=== PATIENT | male | born 1975 | race Asian ===

== ENCOUNTER → 2016-11-07 | Outpatient (CLI) | payer OTHER ==
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
== END ==
LOC: FIMAGING 13:19
PROVIDERS: ATTEND Family Medicine
DX: S52.041A Displaced fracture of coronoid process of right ulna, initial encounter for closed fracture (principal)

== ENCOUNTER 2017-09-14 07:21 | Emergency (ER) | payer OTHER ==
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
[2017-09-14] MEDS ORDERED: IBUPROFEN 800 MG TAB PO ONE (08:31)
[2017-09-14 08:35] VITALS: BP 134/98; PULSE 63; RESP 18; TEMP 97.7; O2SAT 96
== END 2017-09-14 08:36 | disposition home or self-care (01) ==
DX: S22.31XA Fracture of one rib, right side, initial encounter for closed fracture (principal); V11.9XXA Unspecified pedal cyclist injured in collision with other pedal cycle in traffic accident, initial encounter; Y92.410 Unspecified street and highway as the place of occurrence of the external cause; Y99.8 Other external cause status; Y93.55 Activity, bike riding

== ENCOUNTER 2018-03-30 17:20 | Emergency (ER) | payer OTHER ==
[2018-03-30] MEDS ORDERED: ONDANSETRON 4 MG/2 ML VIAL IVP ONE (18:04)
[2018-03-30] MEDS ORDERED: fentaNYL 100 MCG/2 ML INJ IVP ONE (18:43)
[2018-03-30] MEDS ORDERED: IBUPROFEN 600 MG TAB PO ONE (19:42)
[2018-03-30] MEDS ORDERED: OXYCODONE/APAP 5/325MG PREPACK#4 BTL TAKEHOME ONE (19:54)
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
[2018-03-30 20:09] VITALS: BP 146/93
== END 2018-03-30 20:09 | disposition home or self-care (01) ==
DX: S42.022A Displaced fracture of shaft of left clavicle, initial encounter for closed fracture (principal); V17.4XXA Pedal cycle driver injured in collision with fixed or stationary object in traffic accident, initial encounter; Y92.410 Unspecified street and highway as the place of occurrence of the external cause; Y99.8 Other external cause status; Y93.55 Activity, bike riding
CPT/HCPCS: 96374; A4565; J2405; J3010